=== PATIENT | female | born 1950 ===

== ENCOUNTER 2017-08-18 21:55 | Emergency (ER) | payer OTHER ==
[~2017-08-18] VITALS: Ht 165.1 cm; Wt 54.4 kg
[2017-08-18 22:44] LABS: POTASSIUM 3.8 mmol/L (3.6-5.2)
[2017-08-18 22:45] LABS: PLATELET COUNT 293 K/uL (152-353)
[2017-08-19 00:07] LABS: PARTIAL THROMBOPLASTIN TIME 26.3 SECONDS (24.5-33.6)
[2017-08-19] MEDS ORDERED: AMIT25TA22 PO (00:58)
[2017-08-19] MEDS ORDERED: ASA LOW DOSE81 MG PO (01:00)
[2017-08-19] MEDS ORDERED: DIVA500T2 PO (01:01)
[2017-08-19] MEDS ORDERED: DONE5TAB PO (01:03)
[2017-08-19] MEDS ORDERED: FLUPHENAZINE10 MG PO (01:05)
[2017-08-19] MEDS ORDERED: GERI-MOX PO (01:07)
[2017-08-19] MEDS ORDERED: TUSSIN100 MG/5 M PO (01:13)
[2017-08-19] MEDS ORDERED: HYDR5TAB9 PO (01:15)
[2017-08-19] MEDS ORDERED: HYDROXYZ PAM100 MG PO (01:19)
[2017-08-19] MEDS ORDERED: LEVEMIR FL100 UNIT/M SC (01:23)
[2017-08-19] MEDS ORDERED: METF100038 PO (01:25)
[2017-08-19] MEDS ORDERED: NAMENDA5 MG PO (01:27)
[2017-08-19] MEDS ORDERED: NOVOLOG SC (01:31)
[2017-08-19] MEDS ORDERED: PEPCID20 MG PO (01:32)
== END 2017-08-19 00:30 | disposition other institution (70) ==
LOC: ED 21:55
PROVIDERS: Specialist
DX: Z04.6 Encounter for general psychiatric examination, requested by authority (principal)
CPT/HCPCS: 36415; 80053; 80061; 80164; 80307; 80320; 80329; 81000; 82607; 82746; 83036; 83735; 84100; 84134; 84439; 85027; 85610; 85730; 93005; 99285

== ENCOUNTER 2018-04-22 23:14 | Emergency (ER) | payer OTHER ==
[~2018-04-22] VITALS: Wt 53.1 kg
[~2018-04-22 23:14] MED LIST: AMIT25TA22 PO; ARIPIPRAZOLE5 MG PO; ASA LOW DOSE81 MG PO; DIVA500T2 PO; DONE5TAB PO; FLUPHENAZINE10 MG PO; GERI-MOX PO; HYDR5TAB9 PO; HYDROXYZ PAM100 MG PO; LEVEMIR FL100 UNIT/M SC; LEXAPRO10 MG PO; MAGN400T4 PO; METF100038 PO; NAMENDA5 MG PO; NOVOLOG SC; PEPCID20 MG PO; SOD CHLORIDE1 GM PO; TUSSIN100 MG/5 M PO
[2018-04-22 23:56] LABS: PLATELET COUNT 245 K/uL (152-353)
[2018-04-23 00:12] LABS: POTASSIUM 4.2 mmol/L (3.6-5.2)
[2018-04-23 00:30] VITALS: BP 149/79; TEMP 98.1
[2018-04-23] MEDS ORDERED: ARIPIPRAZOLE15 MG PO (03:00)
[2018-04-23] MEDS ORDERED: MELATONIN3 MG PO (03:20)
[2018-04-23] MEDS ORDERED: TYLENOL325 MG PO (03:22)
[2018-04-23] MEDS ORDERED: SERT50TA PO (03:24)
[2018-04-23] MEDS ORDERED: FSBS SC (05:22)
== END 2018-04-23 00:34 | disposition other institution (70) ==
LOC: ED 23:14
PROVIDERS: Internal Medicine
DX: F20.0 Paranoid schizophrenia (principal); E11.9 Type 2 diabetes mellitus without complications; Z04.6 Encounter for general psychiatric examination, requested by authority
CPT/HCPCS: 36415; 80053; 85027; 93005; 99285